=== PATIENT | female | born 1995 | race Caucasian/White ===

== ENCOUNTER → 2016-10-30 | Outpatient (CLI) | payer OTHER ==
[2016-10-30 18:02] LABS: BASO % 0.6 %; BASO ABS # 0.04 K/uL (0-0.2); COMPLETE YES; EOS % 0.9 %; HEMATOCRIT 40.7 % (37-47); IG% 0.2 %; LYMPH % 34.1 %; LYMPH ABS # 2.26 K/uL (1.2-3.4); MEAN CORPUSCULAR HEMOGLOBIN 29.6 pg (25-34); MEAN CORPUSCULAR HGB CONC 32.9 g/dl (32-36); MEAN PLATELET VOLUME 11.6 fL (7.4-10.4); MONO % 6.5 %; NEUT % 57.7 %; PLATELET COUNT 236 K/uL (130-400); RED BLOOD COUNT 4.52 M/uL (4.2-5.4); WHITE BLOOD COUNT 6.63 K/uL (4.8-10.8)
[2016-10-30 18:57] LABS: BLOOD UREA NITROGEN 12 mg/dl (7-18); BUN/CREATININE RATIO 16.6 (10-20); CALCIUM 9.2 mg/dl (8.5-10.1); CARBON DIOXIDE 25 mmol/L (21-32); CHLORIDE 106 mmol/L (98-107); GLUCOSE 74 mg/dl (70-99); POTASSIUM 3.9 mmol/L (3.5-5.1); SODIUM 141 mmol/L (136-145)
== END | disposition home or self-care (01) ==
LOC: C.LAB1850 16:31
PROVIDERS: ATTEND Nurse Practitioner Adult Health
DX: R53.83 Other fatigue (principal); N92.6 Irregular menstruation, unspecified; Z83.49 Family history of other endocrine, nutritional and metabolic diseases

== ENCOUNTER → 2016-11-06 | Outpatient (CLI) | payer OTHER ==
[2016-11-06 17:05] LABS: LYME DISEASE AB IGG NEG (NEG); LYME DISEASE AB IGM NEG (NEG)
[2016-11-11 15:41] LABS: EBV EARLY ANTIGEN AB <0.91 INDEX; EPSTEIN BARR VIR CAPSID IGG 2.98 INDEX
== END | disposition home or self-care (01) ==
LOC: C.LAB1850 15:04
PROVIDERS: ATTEND Internal Medicine
DX: R53.83 Other fatigue (principal)

== ENCOUNTER → 2016-11-12 | Outpatient (CLI) | payer OTHER | END | disposition home or self-care (01) | LOC: C.PAPS 16:07 | PROVIDERS: ATTEND Obstetrics & Gynecology | DX: Z01.419 Encounter for gynecological examination (general) (routine) without abnormal findings (principal) ==

== ENCOUNTER → 2016-11-13 | Outpatient (CLI) | payer OTHER ==
--- NOTE | 2016-11-13 11:07 | DIAGNOSTIC IMAGING REPORT ---
LEFT UPPER QUADRANT ABDOMINAL ULTRASOUND CLINICAL HISTORY: Left upper quadrant pain COMPARISON STUDY: No previous studies for comparison. FINDINGS: The spleen appears sonographically normal. The spleen measures 9.3 cm in length. There is no left-sided hydronephrosis. IMPRESSION: Normal study. Electronically signed by: Galindo Treadwell M.D. 11/13/2016 11:06 AM Dictated Date/Time: 11/13/2016 11:05 AM
[2016-11-13 16:00] LABS: PROLACTIN 7.69 ng/mL
[2016-11-13 16:04] LABS: CALCULATED INSULIN SENSITIVITY 0.373; GLUCOSE LOG 1.9191; INSULIN FASTING 5.8 mU/L (3-25); INSULIN LOG 0.7634
== END | disposition home or self-care (01) ==
LOC: C.ULTRBC 10:35
PROVIDERS: ATTEND Internal Medicine
DX: R10.812 Left upper quadrant abdominal tenderness (principal); N92.6 Irregular menstruation, unspecified

== ENCOUNTER → 2016-12-04 | Outpatient (CLI) | payer OTHER ==
[2016-12-08 08:39] LABS: CHLAMYDIA TRACH RNA*** NOT DETECTED (NOT DETECTED); GC (NEIS GONORRHOEAE)RNA** NOT DETECTED (NOT DETECTED)
== END | disposition home or self-care (01) ==
LOC: C.LABSPEC 13:33
PROVIDERS: ATTEND Physician Assistant
DX: R10.2 Pelvic and perineal pain (principal); L29.8 Other pruritus

== ENCOUNTER → 2017-08-25 | Outpatient (CLI) | payer OTHER ==
--- NOTE | 2017-08-25 18:04 | DIAGNOSTIC IMAGING REPORT ---
CHEST 2 VIEWS ROUTINE CLINICAL HISTORY: COUGH, FEVER. COMPARISON STUDY: Chest radiograph June 28, 2014. FINDINGS: Lung volumes are normal. No pneumothorax or pleural effusion is present. There is no consolidation. Cardiomediastinal silhouette is normal. Pulmonary vascularity is normal. The appearance of the chest is unchanged. IMPRESSION: No acute cardiopulmonary findings. Electronically signed by: Attila Hendrix M.D. 08/25/2017 6:03 PM Dictated Date/Time: 08/25/2017 6:02 PM
== END | disposition home or self-care (01) ==
LOC: C.RAD 17:35
PROVIDERS: ATTEND Internal Medicine
DX: R50.9 Fever, unspecified (principal); R05 Cough

== ENCOUNTER → 2017-09-09 | Outpatient (CLI) | payer OTHER ==
[2017-09-09 13:21] LABS: BASO % 0.2 %; BASO ABS # 0.01 K/uL (0-0.2); EOS % 0.8 %; EOS ABS # 0.04 K/uL (0-0.5); HEMATOCRIT 40.3 % (37-47); HEMOGLOBIN 13.9 g/dL (12.0-16.0); IG# 0.02 K/uL (0.00-0.02); LYMPH % 38.3 %; LYMPH ABS # 1.89 K/uL (1.2-3.4); MEAN CORPUSCULAR HEMOGLOBIN 31.4 pg (25-34); MEAN CORPUSCULAR HGB CONC 34.5 g/dl (32-36); MEAN PLATELET VOLUME 11.2 fL (7.4-10.4); MONO % 4.9 %; MONO ABS # 0.24 K/uL (0.11-0.59); NEUT % 55.4 %; NEUT ABS # 2.73 K/uL (1.4-6.5); PLATELET COUNT 221 K/uL (130-400); RED CELL DISTRIBUTION WIDTH CV 12.4 % (11.5-14.5); RED CELL DISTRIBUTION WIDTH SD 41.6 fL (36.4-46.3); WHITE BLOOD COUNT 4.93 K/uL (4.8-10.8)
[2017-09-09 13:30] LABS: MONOSPOT NEG (NEG)
[2017-09-11 11:26] LABS: EBV EARLY ANTIGEN AB < 9.00 U/ML
== END | disposition home or self-care (01) ==
LOC: C.LAB1850 11:42
PROVIDERS: ATTEND Internal Medicine
DX: R53.83 Other fatigue (principal); R05 Cough; R50.9 Fever, unspecified

== ENCOUNTER → 2017-09-18 | Outpatient (CLI) | payer OTHER ==
[2017-09-23 19:04] LABS: ANA SCREEN TC 249X POSITIVE (NEGATIVE); BORDETELLA PERTUSSIS FHA IGA 5 IU/mL; BORDETELLA PERTUSSIS FHA IGG 22 IU/mL; BORDETELLA PERTUSSIS PT IGG 2 IU/mL
== END | disposition home or self-care (01) ==
LOC: C.LAB1850 11:15
PROVIDERS: ATTEND Internal Medicine Infectious Disease
DX: R50.9 Fever, unspecified (principal)

== ENCOUNTER → 2017-09-25 | Outpatient (CLI) | payer OTHER ==
[2017-09-29 02:53] LABS: ANA SCREEN TC 249X POSITIVE (NEGATIVE); ANTI-SS-A <1.0 NEG AI (<1.0 NEG); ANTI-SS-B <1.0 NEG AI (<1.0 NEG); ANTICARDIOLIPID AB IGA <11 APL (< = 11); COMPLEMENT C3 TC 44859W 94 MG/DL (90-180); COMPLEMENT C4 TC 44982E 8 MG/DL (16-47); MICROSOMAL AB <1 IU/ML (<9)
== END | disposition home or self-care (01) ==
LOC: C.LAB1850 10:30
PROVIDERS: ATTEND Internal Medicine Infectious Disease
DX: R50.9 Fever, unspecified (principal)

== ENCOUNTER → 2017-10-20 | Outpatient (CLI) | payer OTHER | END | disposition home or self-care (01) | LOC: C.LAB1850 10:30 | DX: E01.0 Iodine-deficiency related diffuse (endemic) goiter (principal) ==

== ENCOUNTER → 2017-10-22 | Outpatient (CLI) | payer OTHER ==
--- NOTE | 2017-10-22 08:46 | DIAGNOSTIC IMAGING REPORT ---
SOFT TISS HEAD/NECK-THYROID CLINICAL HISTORY: 22 years-old Female with E01.0 [id number] FEMALE WITH 2 MONTHS OF HOARSENESS,. COMPARISON: None available TECHNIQUE: Multiple real time sonographic images of the thyroid were obtained accessing lindquist scale appearance and color doppler flow. FINDINGS: MEASUREMENTS: Right lobe: 5.3 x 1.1 x 1.9 cm Left lobe: 5.0 x 1.2 x 1.8 cm Isthmus: 0.4 cm PARENCHYMA: The thyroid parenchymal echotexture is generally homogeneous. NODULES: There is an ovoid hypoechoic cystic appearing lesion of the posterior mid pole left thyroid measuring up to 0.5 cm demonstrating benign features and likely representing a colloid cyst. No suspicious nodules identified. No focal abnormality seen within the region of concern within the submental tissues. IMPRESSION: 1. No suspicious thyroid nodules identified. 2. 0.5 cm hypoechoic lesion of the left thyroid suggests a colloid cyst. The above report was generated using voice recognition software. It may contain grammatical, syntax or spelling errors. Electronically signed by: Maximilian Guzman M.D. 10/22/2017 8:44 AM Dictated Date/Time: 10/22/2017 8:41 AM
== END | disposition home or self-care (01) ==
LOC: C.ULTR 07:41
DX: E01.0 Iodine-deficiency related diffuse (endemic) goiter (principal)

== ENCOUNTER → 2017-12-23 | Outpatient (CLI) | payer OTHER | END | disposition home or self-care (01) | LOC: C.PAPS 10:45 | PROVIDERS: ATTEND Physician Assistant | DX: Z12.4 Encounter for screening for malignant neoplasm of cervix (principal) ==

== ENCOUNTER → 2017-12-23 | Outpatient (CLI) | payer OTHER | END | disposition home or self-care (01) | LOC: C.LABSPEC 13:10 | PROVIDERS: ATTEND Physician Assistant | DX: Z12.4 Encounter for screening for malignant neoplasm of cervix (principal) ==